=== PATIENT | female | born 1965 | race Caucasian/White ===

== ENCOUNTER 2022-05-01 18:06 | Emergency (ER) | payer MEDICARE, OTHER ==
[~2022-05-01] VITALS: Ht 170 cm; Wt 85.0 kg
[2022-05-01 18:10] VITALS: BP 153/101
--- NOTE | 2022-05-01 18:13 | ED Lower Extremity ---
General Chief Complaint: Lower Extremity Stated Complaint: LEG SWELLING History of Present Illness Date Seen by Provider: May 01, 2022 Time Seen by Provider: 18:23 Initial Comments 57-year-old female with PMH of fibromyalgia/arthritis/multiple Ortho surgeries including plates in her left foot/C-spine surgery/anxiety/OCD/LUCIUS, is here with complaints of bilateral leg swelling which has been going on for the past 3 weeks or so. Patient stated that first she had a very mild rash with extreme itching of her lower legs, and then a few days later the swelling started. Patient is able to ambulate without any difficulty. Patient works in a [employer] and is on her feet most of the day and is always walking around. Patient denies gardening or spending time in the [place] or weeds or grass. Patient has been scratching continually. Denies pain in her legs, fever, chest pain, shortness of breath, urinary retention or dysuria. Denies history of heart failure. She is not on any blood pressure medications. Allergies and Home Medications Allergies Coded Allergies: No Known Drug Allergies (Unverified , 05/01/22) Patient Home Medication List Home Medication List Reviewed: Yes Review of Systems Constitutional: no symptoms reported EENTM: no symptoms reported Respiratory: no symptoms reported Cardiovascular: no symptoms reported Gastrointestinal: no symptoms reported Genitourinary: no symptoms reported Musculoskeletal: joint swelling Skin: dryness, pruritus, rash Psychiatric/Neurological: No Symptoms Reported Physical Exam Vital Signs Vital Signs - First Documented 05/01/22 18:10 Temp 36.1 Pulse 82 Resp 18 B/P (MAP) 153/101 (118) Pulse Ox 99 O2 Delivery Room Air Capillary Refill : Height, Weight, BMI Height: '" Weight: lbs. oz. kg; BMI Method: General Appearance: WD/WN, no apparent distress HEENT: PERRL/EOMI Neck: non-tender, full range of motion, supple Cardiovascular: normal peripheral pulses, regular rate, rhythm Respiratory: chest non-tender, lungs clear, normal breath sounds, no respiratory distress Gastrointestinal: non tender, soft Legs: bilateral leg non-tender, bilateral leg normal range of motion, bilateral leg no evidence of injury, bilateral leg abrasions (excoriations from itching), bilateral leg swelling Neurologic/Tendon: normal sensation, normal motor functions, normal tendon functions Neurologic/Psychiatric: no motor/sensory deficits, alert, normal mood/affect, oriented x 3 Progress/Results/Core Measures Results/Orders Vital Signs/I&O 05/01/22 18:10 Temp 36.1 Pulse 82 Resp 18 B/P (MAP) 153/101 (118) Pulse Ox 99 O2 Delivery Room Air Progress Progress Note : Progress Note 1. BILATERAL LEG SWELLING: - CBC/ CMP/ D-dimer/ COag panel - Pt left AMA due to family emergency Departure Impression Primary Impression: Localized swelling of both lower legs Disposition: 07 AGAINST MEDICAL ADVICE Condition: Against Medical Advice Departure-Patient Inst. Referrals: NO,LOCAL PHYSICIAN (PCP/Family) Primary Care Physician AKIRA FLORES MD May 01, 2022 18:13
== END 2022-05-01 18:55 | disposition left against medical advice (07) ==
LOC: ER FS 18:07
DX: M79.89 Other specified soft tissue disorders (principal); Z96.89 Presence of other specified functional implants
CPT/HCPCS: 99281

== ENCOUNTER 2022-12-10 18:03 | Emergency (ER) | payer MEDICARE, MEDICAID ==
--- NOTE | 2022-12-10 18:10 | ED Lower Extremity ---
General Chief Complaint: Lower Extremity Stated Complaint: FALL; RT HIP PAIN History of Present Illness Date Seen by Provider: Dec 10, 2022 Time Seen by Provider: 18:09 Initial Comments 57-year-old female presents with right hip/groin pain. She reports that she fell around noon today on asphalt. That she has significant pain especially with movement of her right leg in her right groin. Patient has a history of right hip replacement. Patient is able to stand and bear weight however is when she tries to move she gets significant amount of pain. She denies any other injury. Allergies and Home Medications Allergies Coded Allergies: No Known Drug Allergies (Unverified , 05/01/22) Patient Home Medication List Home Medication List Reviewed: Yes Review of Systems Constitutional: see HPI; No chills, No fever EENTM: no symptoms reported Respiratory: no symptoms reported Cardiovascular: no symptoms reported Gastrointestinal: no symptoms reported Musculoskeletal: see HPI Skin: no symptoms reported Psychiatric/Neurological: No Symptoms Reported Physical Exam Vital Signs Vital Signs - First Documented 12/10/22 18:21 Temp 36.5 Pulse 72 Resp 16 B/P (MAP) 148/76 (100) Pulse Ox 97 O2 Delivery Room Air Capillary Refill : Height, Weight, BMI Height: '" Weight: lbs. oz. kg; 29.00 BMI Method: General Appearance: WD/WN, no apparent distress Neck: full range of motion, supple Cardiovascular: normal peripheral pulses, regular rate, rhythm Respiratory: lungs clear, normal breath sounds Gastrointestinal: non tender, soft Hips: right hip pain, right hip soft tissue tenderness Legs: bilateral leg non-tender Knees: bilateral knee non-tender Ankles: bilateral ankle non-tender Feet: bilateral foot non-tender Progress/Results/Core Measures Results/Orders My Orders Orders - REAGAN BURNETTE DO Pelvis With Right Hip 2-3 View (12/10/22 18:10) Ketorolac Injection (Toradol Injection) (12/10/22 19:03) Norflex 60 Mg Im (12/10/22 19:03) Walker (12/10/22 19:03) Vital Signs/I&O 12/10/22 12/10/22 18:21 19:00 Temp 36.5 36.5 Pulse 72 72 Resp 16 16 B/P (MAP) 148/76 (100) 148/76 Pulse Ox 97 97 O2 Delivery Room Air Room Air Progress Progress Note : Progress Note Patient is x-ray was initially reviewed by me for preliminary reading, I then reviewed radiology report for final reading. Patient's x-ray shows no acute fracture or abnormality. Patient reports that her pain was significant so she was offered a CT to further evaluate but she declined at this time. Patient w ill be provided a walker to help her ambulate since she feels she has difficulty ambulating due to her groin pain. I recommended that if her symptoms do not resolve over the next couple days she follows up with her primary care provider for repeat x-ray or CT at that time. Patient stable and discharged Diagnostic Imaging Diagonstic Imaging: Xray Plain Films/CT/US/NM/MRI: pelvis, hip Comments Date of Exam:12/10/22 PELVIS WITH RIGHT HIP 2-3 VIEW EXAM: Pelvis with right hip 2-3 views INDICATION: Right hip pain. Trauma. Fall. COMPARISON: None. FINDINGS: Right total hip arthroplasty. Components appear intact and normally aligned. No fracture. Soft tissue shadows are unremarkable. IMPRESSION: No acute radiographic finding in the right hip or pelvis. Reviewed: Reviewed by Me, Reviewed/Discussed Departure Impression Primary Impression: Fall Qualified Codes: W19.XXXA - Unspecified fall, initial encounter Additional Impressions: Strain of right inguinal region Hip pain, right Disposition: 01 HOME, SELF-CARE Condition: Stable Departure-Patient Inst. Referrals: MARY ELLISON APRN (PCP) Primary Care Physician MICHELLE PATEL MD (Family) Primary Care Physician Patient Instructions: Hip Pain, Groin Strain Add. Discharge Instructions: 4% topical lidocaine with menthol to the affected area. Voltaren cream or gel to the affected area. Please follow-up with your primary care provider in 1 week if symptoms or not improving. Please use walker when ambulating. All discharge instructions reviewed with patient and/or family. Voiced understanding. REAGAN BURNETTE DO Dec 10, 2022 18:10
--- NOTE | 2022-12-10 18:53 | Diagnostic Imaging Report ---
EXAM: Pelvis with right hip 2-3 views INDICATION: Right hip pain. Trauma. Fall. COMPARISON: None. FINDINGS: Right total hip arthroplasty. Components appear intact and normally aligned. No fracture. Soft tissue shadows are unremarkable. IMPRESSION: No acute radiographic finding in the right hip or pelvis. Dictated by: Dictated on workstation # [id number]
[2022-12-10 19:00] VITALS: BP 148/76
[2022-12-10] MEDS ORDERED: KETOROLAC 60 MG/2 ML VIAL IM STA (19:03)
[2022-12-10] MEDS ORDERED: ORPHENADRINE 60 MG/2 ML (NORFLEX) AMP (ED ONLY) IM STA (19:03)
== END 2022-12-10 19:15 | disposition home or self-care (01) ==
LOC: EDUNIT# 18:03 → ER FS 18:05
DX: S76.911A Strain of unspecified muscles, fascia and tendons at thigh level, right thigh, initial encounter (principal); Z96.641 Presence of right artificial hip joint; Z28.310 Unvaccinated for COVID-19; W18.30XA Fall on same level, unspecified, initial encounter
CPT/HCPCS: 73502